=== PATIENT | male | born 1980 | race Caucasian/White ===

== ENCOUNTER 2021-01-24 18:23 | Outpatient (REF) | payer OTHER, SELFPAY | END 2021-01-24 18:24 | disposition home or self-care (01) | LOC: HO.LNP 18:23 | PROVIDERS: Visit Provider Hospitalist | DX: R05 Cough (principal); Z20.822 Contact with and (suspected) exposure to COVID-19 | CPT/HCPCS: U0003; U0005 ==

== ENCOUNTER 2024-11-05 14:10 | Outpatient (AMB) | payer OTHER, SELFPAY ==
--- NOTE | 2024-11-05 14:10 | A.OFFVIS_ITS ---
Intake Visit Reasons: scrotal pain s/p vasectomy Intake Note: New Patient is present for scrotal pain after vasectomy done with [facility] on 07/2023 Urology Rx:none Blood Thinners:none Supervisor Inspection And Testing Required: No Accompanied by: Self / Same As Patient Allergies No Known Allergies Allergy (Mild, Verified 11/05/24 14:13) NONE HPI Comments Details: Melly is a pleasant male. He is a patient of . He is seen for the following urologic conditions - post vasectomy pain - epididymal congestion Underwent vasectomy proximally 2 years ago Has persistent intermittent pain and discomfort at proximal portion of vas on left side Has had slow improvement over time On exam tender on left vasal proximal portion Also noted to have extreme congestion of left epididymis Trial of local anesthetic cord block performed today Review of Systems Const Denies chills and Denies fever(s) Card Reports no additional complaints and Denies syncope Resp Denies cough GI Denies abdominal pain and Denies heartburn Reports as per HPI and Denies change in libido Neuro Denies syncope Psych Denies change in libido Endo Denies change in libido Physical Exam Const General: cooperative, healthy appearing, comfortable and no acute distress Orientation/consciousness: patient oriented x3 HEENT Face and sinus: Yes normal facial exam Mouth: moist mucous membranes Neck Neck: Yes normal visual inspection, Yes full ROM and Yes trachea midline Chest Chest palpation & inspection: normal inspection of the chest Resp Effort & Inspection: normal respiratory effort, able to speak in complete sentences and no respiratory distress GI Inspection: Yes normal to inspection Back/Spine/Pelvis Cervical Spine: normal cervical lordosis Thoracic/Lumbar Spine: thoracic and lumbar spine normal to inspection Skin General skin exam: no rashes or lesions noted Neuro General: patient oriented x3, gait normal, tone normal and moves all extremities Extrem General: Yes normal to inspection and Yes capillary refill normal Office Procedures Nerve Block Details: Ilioinguinal, scrotal cord block - Block Office procedure - Genitofemoral Cord Injection The [] inguinal ring was palpated with the left hand. The inguinal cord was palpated 1cm lateral to the lateral tubercle on the symphysis pubis. Alcohol prep was applied. A 22 gauge 3.5 in Chiba needle was advanced and under tactile guidance the tip was placed through the inguinal cord.? Negative aspiration was performed.? A fan-like distribution for injection of a total of 10 cc was made.? The injection consisted of 5 cc of 0.5% bupivacaine, 5 cc of 1% lidocaine plus Kenalog The injection was well tolerated with only transient pain. CPT 02137 ICD N50.819 99537 - Ilioinguinal/Iliohypogastric Procedure code (CPT) selection complete Results AMB Urinalysis, Automated UA Leukoctes 0 Curt/uL [facility] [place] [facility] 11/05/24 15:03 UA Nitrite Negative Last Edit by [place], [place] on 11/05/24 15:03 UA Urobilinogen 3.5 mg/dL Last Edit by [place], [place] on 11/05/24 15:03 UA Protein 0 mg/dL Last Edit by [facility] on 11/05/24 15:03 UA pH 6.0 Last Edit by [facility] on 11/05/24 15:03 UA Blood 0 Ponce/uL Last Edit by [facility] on 11/05/24 15:03 UA Specific [place] 1.020 Last Edit by [facility] on 11/05/24 15:03 UA Ketone Negative Last Edit by [facility] on 11/05/24 15:03 UA Bilirubin 0 mg/dL Last Edit by [place], [place] on 11/05/24 15:03 UA Glucose 0 mg/dL Last Edit by [place] on 11/05/24 15:03 Results Reviewed Results Reviewed: Laboratory Last Values Urine pH (Auto) 6.0 11/05/24 14:39 Specific [place] (Auto) 1.020 11/05/24 14:39 Urine Protein (Auto) 0 mg/dL 11/05/24 14:39 Glucose (UA)(Auto) 0 mg/dL 11/05/24 14:39 Urine Ketones (Auto) Negative 11/05/24 14:39 Urine Blood (Auto) 0 Ponce/uL 11/05/24 14:39 Urine Nitrite (Auto) Negative 11/05/24 14:39 Urine Bilirubin (Auto) 0 mg/dL 11/05/24 14:39 Urine Urobilinogen (Auto) 3.5 mg/dL 11/05/24 14:39 Leukocyte Esterase (Auto) 0 Curt/uL 11/05/24 14:39 Assessment & Plan Assessment & Plan (1) Epididymal congestion pain: Code(s): N45.1 - Epididymitis Category: Medical Plan Trial of proximal spermatic cord block Discussion of conversion to open ended scrotal vasectomy vs denervation of the cord Orders: Orders AMB Urinalysis Automated 11/05/24 Z13.9 - Encounter for screening, unspecified Patient Instructions: This note is constructed using voice recognition software. While every effort has been made to ensure accuracy integrated campaign manager errors may have been included. Imaging studies, laboratory and physical exam results were discussed and reviewed in detail. No major barriers to patient understanding were identified. An opportunity to ask questions regarding the treatment plan was provided. All questions were answered. The patient expressed understanding and agreement with the above treatment plan. The patient is aware they should contact our office by phone for worsening of their current condition or the appearance of new urologic symptoms. Compliance is encouraged with any medications and followup testing that is ordered. It is a privilege to participate in the urologic care of your patient. If you have any questions or concerns regarding treatment for the above conditions, or other urologic issues, please do not hesitate to contact me. The office telephone contact is [phone]. Sincerely, Dr Pedro Saucedo MD, [facility] - Urology Compassionate Specialist Care for the Genitourinary System Coding Level of Care Code New Pt Level 4 (61070) Diagnoses Epididymal congestion pain N45.1 CPT Codes Nerve Block - Nerve Block 5: 47200 - Ilioinguinal/Iliohypogastric ([id number])
== END 2024-11-05 14:59 | disposition home or self-care (01) ==
LOC: HO.HUSH 14:10
PROVIDERS: PCP Physician Assistant Medical; Visit Provider Urology
DX: Z13.9 Encounter for screening, unspecified (principal)

== ENCOUNTER → 2024-11-05 14:10 | Outpatient (BNVA) | payer OTHER, SELFPAY | PROVIDERS: PCP Physician Assistant Medical; Visit Provider Urology | DX: N45.1 Epididymitis (principal) | CPT/HCPCS: 64425; 81003; J0665; J2003; J3301 ==

== ENCOUNTER 2025-01-02 09:25 | Outpatient (AMB) | payer OTHER, SELFPAY ==
--- NOTE | 2025-01-02 09:25 | MHC.OFFVIS ---
Intake Visit Reasons: Discuss surgery Intake Note: Patient is present for: telehealth discuss surgery Urology Rx:none Blood Thinners:none Director Of Rehabilitative Services Required: No Accompanied by: Self / Same As Patient Allergies No Known Allergies Allergy (Mild, Verified 01/02/25 09:25) NONE HPI Comments Details: Melly is a pleasant male. He is a patient of . He is seen for the following urologic conditions - post vasectomy pain - epididymal congestion Telemedicine Evaluation 15 min Consultation [employer] Video 24 hour benefit from cord block Would like to move ahead with epididymal decompression Underwent vasectomy proximally 2 years ago Has persistent intermittent pain and discomfort at proximal portion of vas on left side Has had slow improvement over time On exam tender on left vasal proximal portion Also noted to have extreme congestion of left epididymis Underwent local anesthetic cord block in office Review of Systems Const All systems reviewed & are unremarkable except as noted in HPI and below Reports no additional complaints Resp Reports no additional complaints GI Reports no additional complaints Reports as per HPI Musc Reports no additional complaints Physical Exam Telemedicine evaluation Appropriate responses Regular breathing rate and rhythm HEENT Head: Yes normal to inspection Ears: hearing grossly normal bilaterally Eyes General: appearance normal, both eyes and all related structures Neck Neck: Yes normal visual inspection Chest Chest palpation & inspection: normal inspection of the chest Resp Effort & Inspection: normal respiratory effort and able to speak in complete sentences Telehealth Telehealth Telehealth Platform: [employer] Location of provider rendering services: practice address Location of patient: address on file Patient Identification confirmed using: Name, : Yes Telehealth method: video Patient verbally consented to treatment: Yes Patient verbally consented to billing insurance company: Yes Patient informed of any privacy concerns related to visit: Yes Assessment & Plan Assessment & Plan (1) Epididymal congestion pain: Code(s): N45.1 - Epididymitis Category: Medical Plan Risks, benefits and alternatives to therapy were discussed. These include but are not limited to infection, bleeding, damage to local organs and tissues, need for further interventions. Anesthetic risks regarding cardiac arrhythmia, blood clots, and potential mortality were discussed. The patient understands the typical recovery time and the outpatient nature of the procedure. After consideration of these risks the patient gives full informed consent and they wish to move ahead with the procedure. Left scrotal epididymal decompression Patient Instructions: This note is constructed using voice recognition software. While every effort has been made to ensure accuracy peripheral equipment operator errors may have been included. Imaging studies, laboratory and physical exam results were discussed and reviewed in detail. No major barriers to patient understanding were identified. An opportunity to ask questions regarding the treatment plan was provided. All questions were answered. The patient expressed understanding and agreement with the above treatment plan. The patient is aware they should contact our office by phone for worsening of their current condition or the appearance of new urologic symptoms. Compliance is encouraged with any medications and followup testing that is ordered. It is a privilege to participate in the urologic care of your patient. If you have any questions or concerns regarding treatment for the above conditions, or other urologic issues, please do not hesitate to contact me. The office telephone contact is [phone]. Sincerely, Dr Pedro Saucedo MD, [facility] - Urology Compassionate Specialist Care for the Genitourinary System Coding Level of Care Code Tele Est Pt Level 4 (42008) Diagnoses Epididymal congestion pain N45.1
== END 2025-01-02 10:15 | disposition home or self-care (01) ==
LOC: HO.HUSH 09:25
PROVIDERS: PCP Physician Assistant Medical; Visit Provider Urology
DX: N45.1 Epididymitis (principal)
CPT/HCPCS: 99214

== ENCOUNTER 2025-03-16 09:13 | Day surgery (SDC) | payer OTHER, SELFPAY ==
--- NOTE | 2025-03-11 14:26 | P.CONAN_ITS ---
Documented by User: Shahrzad Campos NP 03/11/25 14:27 HPI - Anesthesia Eval Consult details Narrative: 45yo M for Epididymectomy PMFSH Active Problems Active Problems: All Active Problems Epididymal congestion pain (Acute) Cough (Acute) Past Medical History Medical History Vitamin D deficiency RLS (restless legs syndrome) Smoker Surgical History Surgical History (Updated 03/12/25 @ 13:58 by Jessica Nevarez, RN) History of vasectomy (~2023) Social History Social History Patient Tobacco Use Status: Never used Tobacco Have you been hit, kicked, punched, or otherwise hurt by someone within the past year? If so, by whom?: No Are you DNR?: No Advance Directives: No Advance Directives Information Provided: Yes Meds Allergies Allergy/AdvReac Type Severity Reaction Status Date / Time No Known Allergies Allergy Mild NONE Verified 01/02/25 09:25 Home Medications ?Medication ?Instructions ?Recorded ?Confirmed ?Last Taken ?Type No Known Home Meds 03/16/25 03/16/25 Un known History Assessment and Plan Assessment Anesthesia Assessment: Chart Reviewed Documented by User: Aj Churchill MD 03/16/25 11:12 PMFSH Past Medical History Medical History Vitamin D deficiency RLS (restless legs syndrome) Smoker Family History Family history of problems with anesthesia: No Surgical History Surgical History (Updated 03/12/25 @ 13:58 by Jessica Nevarez RN) History of vasectomy (~2023) History of Problems with Anesthesia: No Social History Social History Patient Tobacco Use Status: Never used Tobacco Have you been hit, kicked, punched, or otherwise hurt by someone within the past year? If so, by whom?: No Are you DNR?: No Advance Directives: No Advance Directives Information Provided: Yes Meds Allergies Allergy/AdvReac Type Severity Reaction Status Date / Time No Known Allergies Allergy Mild NONE Verified 01/02/25 09:25 Home Medications ?Medication ?Instructions ?Recorded ?Confirmed ?Last Taken ?Type No Known Home Meds 03/16/25 03/16/25 Un known History Exam Airway Mallampati Class: II TM Dist: >3cm Neck ROM: Full Loose/Missing/Broken Teeth: No Heart: RRR Lungs: CTA Assessment and Plan Assessment Anesthesia Assessment: Anesthesia Plan Discussed and Chart Reviewed Final Anesthetic Review Family History of Problems with Anesthesia: No History of Problems with Anesthesia: No NPO: Yes ASA Class: II Final Preanesthetic Review: No Changes in Pt Med Stat, Meds/Allgs Chart Reviewed, Consent Obtained/Reviewed and Anes Risks/Benef Reviewed Patient Risk: Low Procedure Risk: Low Anesthetic Plan Anesthetic Plan: GA Disposition: Standard PACU
[2025-03-12 13:58] VITALS: BMI 24.2
[2025-03-16] VITALS (8 sets, daily range): BP systolic 98–128; BP diastolic 49–88; PULSE 61–99; RESP 10–17; TEMP 36.9–37.2; O2SAT 97–100; BMI 23.8
[2025-03-16] MEDS: Lactated Ringers 1,000 ML 100 ML IVCONT (10:06)
--- NOTE | 2025-03-16 11:48 | W.PM.OPN ---
Operative Note Operative Note Date of Service: 03/16/25 Narrative: PreOperative Diagnosis: Bladder outlet obstruction Post Operative Diagnosis: Bladder outlet obstruction Procedure: CPT 84831 - Transurethral electrosurgical prostate resection Surgeon: Dr Pedro Saucedo Anesthesia: General History of bladder outlet obstruction. Treated with alpha-yiim and other medications. Still with symptoms. On cystoscopy in office has trilobar prostate . Recommendation for prostate procedure with plasma button Transurethral electrosurgical prostate resection. Risks and benefits have been discussed. Focus was placed on development of retrograde ejaculation which is a normal part of this procedure. Procedure: After informed consent was verified the patient was brought to the operating room and placed in a supine position. Anesthesia was administered per protocol. Patient was placed in modified dorsal lithotomy position and prepped and draped in a sterile fashion. Safety pause time-out was confirmed. Antibiotics have been given. A Twenty-four Amharic cystoscope with visual obturator was inserted per urethra. No abnormalities were found of the anterior and bulbar urethra. The prostatic urethra shows lateral lobe crowding. The bladder was examined and both ureteric orifices were seen in their normal positions away from the area of interest. Bladder trabeculation Grade 1. The visual obturator was removed and replaced with a plasma button resection loop. Using the plasma button incisions were made at the 5 and 7 o'clock position. The initial incision was made at the 7 o'clock position starting level with the bladder neck and in line with ureteric orifice on that side. The groove was extended distally to the area just proximal of the veru. This groove was deepened with multiple passes to define the lateral aspects of the median lobe area. The proximal portion of the groove was extended through the bladder neck and remained in line with the ureteric orifice on each side. The goal was to reveal prostate strands from the surgical capsule. Once clearly defined the groove was extended in the lateral direction. The 05:00 o'clock position groove was then created in a similar fashion. The intervening median lobe was then resected and enucleated tissue released into the bladder. The deep boundary of resection was defined by the prostate surgical capsule. Attention was directed toward the lateral lobes. Starting with the patient's left lateral lobe. First the 05:00 o'clock groove was further developed. This was moved in the lateral direction to undermine the tissue on the lateral side running from the bladder neck to the prostate apex. The ureteric orifice was used to guide incisions. The plasma button was placed at the 1 o'clock position and a secondary groove was developed down to the level of prostatic capsule. The creation of a second deep groove defined a segment of intervening tissue similar to a slice of orange. At the apex of the prostate the laser was used to vertically link the two grooves releasing the intervening tissue and creating a segment of tissue. This tissue was then removed with a combination of enucleation and ablation working from the apex toward the bladder neck. A similar procedure was repeated on the patient's right-hand side. The only differences being the position of the lateral groove at he 7 o'clock position and the secondary groove at the 11 o'clock position, Otherwise the procedure was developed in a mirror fashion. After the majority of tissue had been debulked remnant tissue was removed with the plasma button and the curve of the prostate followed up each side wall clearly defining the anterior remnant strip that remained between the 11 and 1 o'clock positions. At completion debris and pieces of prostate were removed from the bladder with irrigation. Both ureteric orifices were reviewed again in shown to be patent in away from any areas of energy damage. The apical area was reviewed and any stray mucosal ooze was controlled. A 22 Amharic 30 cc balloon Zambrano catheter was placed into the bladder using a flexible stylet. Clear efflux was obtained upon irrigation with a Saji piston syringe. 40 cc was placed in the balloon and gentle traction was placed. A snap was used to hold tension on the catheter to control bleeding during patient moved and transported. A drainage bag was placed. A belladonna and opiate suppository was placed per rectum Once transportation is complete to the PACU the snap will be removed. The patient tolerated the procedure well, he was extubated in the operating and transferred in a stable condition to the recovery area. Pathology: Prostate tissue Drains: Zambrano catheter
--- NOTE | 2025-03-16 11:50 | MHC.SHP ---
Pre-Procedural Eval Section A - 24 Hr Update-Section A only Date of Service: 03/16/25 The patient is an INPATIENT: No Changes since office visit: No Cold of Flu in the past 2 weeks, No New Medical Problems, No Changes in Medication and No Patient answered all questions The patient has been examined within 24 hours of the surgical procedure. The History & Physical has been completed within 30 days and I have reviewed it.: Yes Section B - Complete if H&P > 30 days Chief Complaint: Epididymitis Details of Present Illness: Left epididymectomy Allergies: Allergies Allergy/AdvReac Type Severity Reaction Status Date / Time No Known Allergies Allergy Mild NONE Verified 01/02/25 09:25 Review of Systems Sugical H&P ROS: Negative: Constitution, Cardiovascular, Respiratory, Neurological, Psychiatric, Hem-Onc, Allergic/Immunologic, Gastrointestinal, Genitourinary, Musculoskeletal, Integumentary, Endocrine and Eyes/Ears/Nose/Throat Exam Surgical H&P Exam: Normal: HEENT, Normal: Heart, Normal: Lungs, Normal: Extremities, Normal: Abdomen, Normal: Skin and Normal: Neurological Plan Diagnosis/Plan: Unchanged I have reviewed the history and physical and performed a pertinent physical examination on my patient. No changes have occurred unless specified. Time Spent With Patient Time: Total time managing care of this patient today ____ minutes.
--- NOTE | 2025-03-16 12:48 | W.PM.OPN ---
Operative Note Operative Note Date of Service: 03/16/25 Narrative: PreOperative Diagnosis: Left epididymal scarring Post Operative Diagnosis: Left Spermatocele with scarring Procedure: Left Spermatocelectomy Surgeon: Dr Pedro Saucedo Anesthesia: General Indications for procedure: Left paratesticular discomfort and epididymal scarring Procedure: After informed consent was verified the patient was brought to the operating room and placed in a supine position. Anesthesia was administered per protocol. Patient was appropriately shaved and genitals were prepped and draped in sterile fashion. Safety pause time-out was performed. Antibiotics being given. Local anesthetic was infiltrated under the skin in a horizontal fashion on the scrotum. Skin incision was made using a blade through the dermal and dartos layer. Dissection was performed attempting to separate the tunica from overlying layers. The tunica appeared to be strongly adherent to the testicle and overlying layers. This is consistent with a prior reactive response. The testicle and associated tissues were delivered through the scrotal skin incision. Sharp dissection was performed around the testicular area and it became clear there was an inflamed spermatocele adherent to the head and tail of the epididymis. The spermatocele was seen within the epididymis of the testicle. Using Bovie cautery the spermatocele was carefully dissected free from attachments to the upper pole of the testicle and the epididymis. Once free the stalk of the spermatocele was identified and cauterized. Fluid was removed from the spermatocele and the empty spermatocele sac was removed. Hemostasis was gained with cautery necessary over the inflamed tunica remaining on the testicle and along cord remnants. The scrotal sac was examined for hemostasis. The testicle was placed back within tunica inside the scrotum. Due to the inflamed nature of the dissection a decision was made to leave a Lavalette drain. The Lavalette drain was placed through the dependent portion of the scrotum and brought out through the incision. Prior to tunica closure there was noted to be gathering venous blood within the scrotal sac. The testicle was removed from the testicular sac and the scrotum examined. There appeared to be retracted vein and with hematoma. [id number] Vicryl was applied for hemostasis. The scrotum was irrigated. The testicle was placed back in the scrotum. The tunica was closed using a running 3-0 Vicryl suture. Overlying tissue was reapproximated using a running 3-0 Vicryl suture. Skin was closed with interrupted 4-0 chromic sutures. The Lavalette drain was attached to each and with safety pin and excess removed. Soft fluff sponges were placed with mesh pants as dressing. Local anesthetic was placed in inguinal cord for post procedure pain relief. Patient tolerated procedure well was extubated in operating room transferred in stable condition to the recovery area Pathology: Spermatocele sac Drains: Lavalette drain as above
[2025-03-16] MEDS: oxyCODONE HCl Immed Release 5 MG TABLET PO (13:40)
== END 2025-03-16 14:24 | disposition home or self-care (01) ==
PROVIDERS: Visit Provider Urology
PROC: (CPT 54840; principal; 2025-03-16 12:00)
DX: N45.1 Epididymitis (principal); N50.812 Left testicular pain; N43.41 Spermatocele of epididymis, single; N32.9 Bladder disorder, unspecified; N50.89 Other specified disorders of the male genital organs; N99.81 Other intraoperative complications of genitourinary system; N32.89 Other specified disorders of bladder; E55.9 Vitamin D deficiency, unspecified; Z98.52 Vasectomy status
CPT/HCPCS: 54840; 52601; 88304; J0131; J0690; J1100; J2003; J2405; J2704; J2795; J3010

== ENCOUNTER → 2025-03-16 09:13 | Outpatient (BNV) | payer OTHER, SELFPAY | PROVIDERS: Visit Provider Urology | DX: N43.41 Spermatocele of epididymis, single (principal); N50.812 Left testicular pain | CPT/HCPCS: 54840 ==

== ENCOUNTER 2025-04-03 09:45 | Outpatient (AMB) | payer OTHER, SELFPAY ==
--- NOTE | 2025-04-03 09:58 | A.OFFVIS_ITS ---
Intake Visit Reasons: postop swelling/cord block? Intake Note: Reason for Visit: Post Op Left Spermatocelectomy/Cord Block Urology Medication: None Blood Thinners: None Junior Engineer Required: No Accompanied by: Self / Same As Patient Allergies No Known Allergies Allergy (Mild, Verified 04/03/25 10:00) NONE HPI Comments Details: Melly is a pleasant male. He is a patient of . He is seen for the following urologic conditions - post vasectomy pain - epididymal congestion - epididymal cyst Postoperative pain Unable to get pain medication Had removal of epididymal cyst Postprocedure mild hematoma within testicle Cord block performed today 10 cc lidocaine and bupivacaine mix into left cord PFSH Medical History Vitamin D deficiency RLS (restless legs syndrome) Smoker Surgical History History of vasectomy (~2023) Social History Patient Tobacco Use Status: Never used Tobacco Review of Systems Const Denies chills and Denies fever(s) Card Reports no additional complaints and Denies syncope Resp Denies cough GI Denies abdominal pain and Denies heartburn Reports as per HPI and Denies change in libido Neuro Denies syncope Psych Denies change in libido Endo Denies change in libido Physical Exam Const General: cooperative, healthy appearing, comfortable and no acute distress Orientation/consciousness: patient oriented x3 HEENT Face and sinus: Yes normal facial exam Mouth: moist mucous membranes Neck Neck: Yes normal visual inspection, Yes full ROM and Yes trachea midline Chest Chest palpation & inspection: normal inspection of the chest Resp Effort & Inspection: normal respiratory effort, able to speak in complete sentences and no respiratory distress GI Inspection: Yes normal to inspection Back/Spine/Pelvis Cervical Spine: normal cervical lordosis Thoracic/Lumbar Spine: thoracic and lumbar spine normal to inspection Skin General skin exam: no rashes or lesions noted Neuro General: patient oriented x3, gait normal, tone normal and moves all extremities Extrem General: Yes normal to inspection and Yes capillary refill normal Office Procedures Nerve Block Details: Nerve block placed into inguinal cord Left side 07495 - Ilioinguinal/Iliohypogastric Procedure code (CPT) selection complete Office Meds lidocaine (PF) 10 mg/mL (1 %) injection solution Performing Provider: Pedro Saucedo MD [facility] Administered by: Pedro Saucedo MD on 04/03/25 17:27 Dose Route Admin Location Dispensed Lot Number Expiration Date [facility] Fil[employer] As[employer]er 5 mL peripheral nerve block 5 mL Total Dispensed Waste 5 mL 0 % bupivacaine (PF) 0.25 % (2.5 mg/mL) injection solution Performing Provider: Pedro Saucedo MD Per[place] [facility] Administered by: Pedro Saucedo MD on 04/03/25 17:27 Dose Route Admin Location Dispensed Lot Number Expiration Date [facility] [employer] 5 mL Infiltration 5 mL Total Dispensed Waste 5 mL 0 % Assessment & Plan Assessment & Plan (1) Testicular pain, left: Code(s): N50.812 - Left testicular pain Category: Medical Plan Keep month follow-up Orders: Orders AMB Nerve Block Today N50.812 - Left testicular pain Medications: New hydrocodone-acetaminophen 5-325 mg Partial Fill upon patient request. 1 tab PO Q8H PRN 10 tabs 0RF pain N20.0 - Calculus of kidney, N45.1 - Epididymitis Patient Instructions: This note is constructed using voice recognition software. While every effort has been made to ensure accuracy merchandise flow manager errors may have been included. Imaging studies, laboratory and physical exam results were discussed and reviewed in detail. No major barriers to patient understanding were identified. An opportunity to ask questions regarding the treatment plan was provided. All questions were answered. The patient expressed understanding and agreement with the above treatment plan. The patient is aware they should contact our office by phone for worsening of their current condition or the appearance of new urologic symptoms. Compliance is encouraged with any medications and followup testing that is ordered. It is a privilege to participate in the urologic care of your patient. If you have any questions or concerns regarding treatment for the above conditions, or other urologic issues, please do not hesitate to contact me. The office telephone contact is [phone]. Sincerely, Dr Pedro Saucedo MD, [facility] - Urology Compassionate Specialist Care for the Genitourinary System Coding Level of Care Code Complex visit Add On G2211 Diagnoses Testicular pain, left N50.812 CPT Codes Nerve Block - Nerve Block 5: 47365 - Ilioinguinal/Iliohypogastric ([id number])
== END 2025-04-03 10:27 | disposition home or self-care (01) ==
LOC: HO.HUSH 09:45
PROVIDERS: Visit Provider Urology
DX: N50.812 Left testicular pain (principal)
CPT/HCPCS: 64425

== ENCOUNTER → 2025-04-03 09:45 | Outpatient (BNVA) | payer OTHER, SELFPAY | PROVIDERS: Visit Provider Urology | DX: N50.812 Left testicular pain (principal); G89.18 Other acute postprocedural pain; Z98.52 Vasectomy status | CPT/HCPCS: 64425; J0665; J2003 ==